=== PATIENT | female | born 1980 | race Two or more races ===

== ENCOUNTER 2019-05-15 01:47 | Emergency (ER) | payer SELFPAY ==
[~2019-05-15] VITALS: Ht 157.5 cm; Wt 95.5 kg
--- NOTE | 2019-05-15 02:04 | NUR ---
RUTHANN ROBERTS FROM HOME. FAMILY REPORTS PT. WAS NOT ANSWERING HER PHONE SO WENT TO CHECK ON HER; PT. AROUSABLE TO VOICE BUT VERY LETHARGIC. UNKNOWN DOWN TIME. FAMILY REPORTS "SHE HAS EPISODES LIKE THIS WHEN SHE IS UNDER A LOT OF STRESS AND WE HAVE A LOT OF FAMILY DRAMA GOING ON RIGHT NOW." PT. A&O X 4. PT. WITH GENERALIZED WEAKNESS ALL EXTREMITIES. PERRL. FAMILY REPORTS HX OF SAME IN THE PAST "THEY ALWAYS JUST CHALK IT UP TO SYNCOPE" CONTINUOUS PULSE OX, B/P, AND HEART MONITORS APPLIED. CALL LIGHT IN REACH. TECH AT BS FOR EKG. ALL SAFEY MEASUERS OBSERVED. FAMILY AT BS FOR SUPPORT.
[2019-05-15] MEDS ORDERED: SODIUM CHLORIDE FLUSH 10ML SYR IVF ONE (02:30)
[2019-05-15 02:48] LABS: BASOPHILS # (AUTO) 0.09 x10^3/uL (0-0.1); BASOPHILS % (AUTO) 1 % (0-1); EOSINOPHILS # (AUTO) 0.07 x10^3/uL (0-0.4); EOSINOPHILS % (AUTO) 1 % (1-7); LYMPHOCYTES # (AUTO) 2.49 x10^3/uL (1-3.4); LYMPHOCYTES % (AUTO) 28 % (22-44); MD NO; MEAN CORPUSCULAR HEMOGLOBIN 31.6 pg (27.0-34.8); MEAN CORPUSCULAR HGB CONC 33.4 g/dL (32.4-35.8); MEAN CORPUSCULAR VOLUME 94.7 fL (80-100); MEAN PLATELET VOLUME 7.8 fL (7.4-10.4); MONOCYTES # (AUTO) 0.76 x10^3/uL (0.2-0.8); MONOCYTES % (AUTO) 9 % (2-9); NEUTROPHILS # (AUTO) 5.46 x10^3/uL (1.8-6.8); NEUTROPHILS % (AUTO) 62 % (42-75); PLATELET COUNT 345 x10^3/uL (130-400); RED BLOOD COUNT 4.59 x10^6/uL (3.82-5.3); RED CELL DISTRIBUTION WIDTH 13.3 % (9.6-15.2)
[2019-05-15 02:57] LABS: ALBUMIN 3.7 g/dL (3.4-5.0); ANION GAP 4 mmol/L (5-15); CHLORIDE 108 mmol/L (98-107)
[2019-05-15 03:06] LABS: ALANINE AMINOTRANSFERASE 24 U/L (12-78); ALKALINE PHOSPHATASE 83 U/L (45-117); BILIRUBIN,TOTAL 0.4 mg/dL (0.2-1.0); CREATININE 0.75 mg/dL (0.55-1.02); TOTAL PROTEIN 7.6 g/dL (6.4-8.2); TROPONIN I < 0.015 ng/mL (0.000-0.045)
--- NOTE | 2019-05-15 03:18 | NUR ---
PT RESTING COMFORTABLY. INTERACTING WITH FAMILY AT BEDSIDE.
--- NOTE | 2019-05-15 03:49 | NUR ---
PT AMBULATED TO BR W/SBA. PT STATES SHE IS FEELING BETTER AND WANTS TO GO HOME.
[2019-05-15 03:52] VITALS: BP 106/64
== END 2019-05-15 04:14 | disposition home or self-care (01) ==
LOC: ED 03:05
DX: R55 Syncope and collapse (principal); I25.2 Old myocardial infarction; Z90.89 Acquired absence of other organs
CPT/HCPCS: 36415; 71045; 80053; 84484; 84702; 85025; 93005; 99284